=== PATIENT | male | born 1985 | race Caucasian/White ===

== ENCOUNTER 2016-10-25 20:15 | Emergency (ER) | payer MEDICAID ==
[~2016-10-25] VITALS: Ht 180.3 cm; Wt 82.0 kg
[2016-10-25 20:59] VITALS: BP 123/73
== END 2016-10-25 21:27 | disposition home or self-care (01) ==
LOC: EMS 20:46
DX: M25.532 Pain in left wrist (principal); G89.29 Other chronic pain; M79.89 Other specified soft tissue disorders
CPT/HCPCS: 99281